=== PATIENT | male | born 1955 | race Caucasian/White ===

== ENCOUNTER → 2021-11-17 | Outpatient (CLI) | payer MEDICARE | LOC: M WUC 10:15 | PROVIDERS: ATTEND Physician Assistant Medical | DX: M79.672 Pain in left foot (principal) ==

== ENCOUNTER 2023-02-01 06:32 | Day surgery (SDC) | payer MEDICARE ==
[~2023-02-01] VITALS: Ht 167.6 cm; Wt 99.7 kg
[~2023-02-01 06:32] MED LIST: NS 1,000 ML IV ONE
[2023-02-01] MEDS ORDERED: LIDOCAINE 2% 100MG/5ML SDV (FOR ANES.) As Ordered ONE (07:25)
[2023-02-01] MEDS ORDERED: propofoL 200 MG/20 ML VIAL As Ordered ONE (07:25)
[2023-02-01 08:07] VITALS: TEMP 98
[2023-02-01 08:44] VITALS: BP 121/77; O2SAT 94
== END 2023-02-01 09:01 | disposition home or self-care (01) ==
LOC: M OPP 06:32
PROVIDERS: ATTEND Internal Medicine Gastroenterology
DX: Z12.11 Encounter for screening for malignant neoplasm of colon (principal); D12.2 Benign neoplasm of ascending colon; D12.3 Benign neoplasm of transverse colon; D12.8 Benign neoplasm of rectum; K64.0 First degree hemorrhoids; K57.30 Diverticulosis of large intestine without perforation or abscess without bleeding

== ENCOUNTER → 2023-05-11 | Outpatient (CLI) | payer MEDICARE ==
[~2023-05-11] MED LIST changes: +ISOVUE-370 76% 100ML VIAL As Ordered ONE; -NS 1,000 ML IV ONE
== END ==
LOC: M RAD 13:50
PROVIDERS: ATTEND Internal Medicine Cardiovascular Disease
DX: I71.21 Aneurysm of the ascending aorta, without rupture (principal)
CPT/HCPCS: 71260; Q9967

== ENCOUNTER → 2023-09-21 | Outpatient (CLI) | payer MEDICARE | LOC: M RAD 11:25 | PROVIDERS: ATTEND Physician Assistant Medical | DX: E04.2 Nontoxic multinodular goiter (principal) ==

== ENCOUNTER → 2023-11-06 | Outpatient (REF) | payer MEDICARE ==
[~2023-11-06] MED LIST changes: +ATOR40TA75 PO; -ISOVUE-370 76% 100ML VIAL As Ordered ONE; +LASI20TA3 PO; +LASI40TA9 PO; +METO1TAB7 PO; +MUCI1TAB18 PO; +POTA-151 PO; +VENTAER INH
[2023-11-06 17:18] LABS: INR 1.08; PROTHROMBIN TIME 13.7 SECONDS (12.5-14.5)
[2023-11-06 17:46] LABS: BLOOD UREA NITROGEN 18 MG/DL (9-23); CALCIUM LEVEL 8.5 MG/DL (8.3-10.6); CARBON DIOXIDE LEVEL 26 MMOL/L (20-31); CHLORIDE LEVEL 104 MMOL/L (98-107); GLOMERULAR FILTRATION RATE > 60.0 (>49); GLUCOSE, FASTING 125 MG/DL (74-106); POTASSIUM SERUM 4.3 MMOL/L (3.5-5.1); SODIUM LEVEL 138 MMOL/L (136-145)
== END ==
LOC: M SHH 16:31
PROVIDERS: ATTEND Physician Assistant
DX: J90 Pleural effusion, not elsewhere classified (principal)

== ENCOUNTER → 2024-08-08 | Outpatient (CLI) | payer MEDICARE | LOC: M WUC 10:12 | PROVIDERS: ATTEND Physician Assistant Medical | DX: R06.2 Wheezing (principal); R05.1 Acute cough ==

== ENCOUNTER 2024-08-12 15:53 | Inpatient (IN) | payer MEDICARE ==
[~2024-08-12] VITALS: Ht 167.6 cm; Wt 104.9 kg
[2024-08-12] MEDS: IPRATROPIUM 0.5MG/ALBUTEROL 2.5MG INH SOL UD 3ML (DUONEB) NEB ONE (16:48)
[2024-08-12 16:49] LABS: BASO # 0.1 10^3/uL (0.0-0.2); BASO % 0.7 % (0.0-1.0); EOS # 0.4 10^3/uL (0.0-0.5); EOS % 6.5 % (0.0-3.0); HEMATOCRIT 41.2 % (42.0-52.0); HEMOGLOBIN 14.1 g/dl (13.5-17.5); LYMPH # 1.9 10^3/uL (1.5-5.0); LYMPH % 27.9 % (24.0-44.0); MEAN CORPUSCULAR HEMOGLOBIN 28.9 pg (27.0-33.0); MEAN CORPUSCULAR HGB CONC 34.2 g/dl (32.0-36.5); MEAN CORPUSCULAR VOLUME 84.4 fl (80.0-96.0); MONO # 0.5 10^3/uL (0.0-0.8); MONO % 6.7 % (2.0-8.0); NEUTROPHILS # 3.9 10^3/uL (1.5-8.5); NEUTROPHILS % 57.5 % (36.0-66.0); PLATELET COUNT, AUTOMATED 280 10^3/uL (150-450); RED BLOOD COUNT 4.88 10^6/uL (4.30-6.10); WHITE BLOOD COUNT 6.8 10^3/uL (4.0-10.0)
[2024-08-12 17:17] LABS: ALBUMIN 3.9 G/DL (3.2-5.2); ALKALINE PHOSPHATASE 85 U/L (40-129); ALT/SGPT 28 U/L (7.0-40); AST/SGOT 29 U/L (<34); BILIRUBIN,DIRECT 0.7 MG/DL (<0.4); BILIRUBIN,TOTAL 1.8 MG/DL (0.3-1.2); BLOOD UREA NITROGEN 16 MG/DL (9-23); CALCIUM LEVEL 9.1 MG/DL (8.3-10.6); CARBON DIOXIDE LEVEL 28 MMOL/L (20-31); CHLORIDE LEVEL 103 MMOL/L (98-107); CK-MB VALUE MASS 4.4 NG/ML (<3.6); CREATININE FOR GFR 0.89 MG/DL (0.70-1.30); GLOMERULAR FILTRATION RATE > 60.0 (>49); GLUCOSE, FASTING 137 MG/DL (74-106); POTASSIUM SERUM 3.6 MMOL/L (3.5-5.1); SODIUM LEVEL 138 MMOL/L (136-145); TOTAL PROTEIN 7.3 G/DL (5.7-8.2)
[2024-08-12 17:29] LABS: CPK CREATINE PHOSPHOKINASE 348 U/L (46-171); MB/CK RELATIVE INDEX 1.26 (< OR =4)
[2024-08-12] MEDS: IPRATROPIUM 0.5MG/ALBUTEROL 2.5MG INH SOL UD 3ML (DUONEB) NEB PRN (18:10)
[2024-08-12 18:32] LABS: CK-MB VALUE MASS 3.7 NG/ML (<3.6); MB/CK RELATIVE INDEX 1.11 (< OR =4)
[2024-08-12] MEDS: methylPREDNISolone 125MG 2ML VIAL IV ONE (19:11)
[2024-08-12] MEDS ORDERED: ISOVUE-370 76% 100ML VIAL As Ordered ONE (19:11)
[2024-08-12] MEDS: ASPIRIN 325 MG TAB PO ONE (19:11)
[2024-08-12] MEDS: ALBUTEROL SULFATE 2.5MG/0.5ML INH NEB SOLN NEB ONE (19:17)
[2024-08-12 19:24] LABS: INR 0.97; PROTHROMBIN TIME 13.2 SECONDS (12.5-14.5)
[2024-08-12 19:36] LABS: ABG BASE EXCESS 0.3 (-2.0-2.0); ABG O2 SATURATION 95.5 % (95.0-99.0); ABG PARTIAL PRESSURE O2 72.1 mmHg (75.0-100.0); ABG STANDARD HCO3 24.7 MMOL/L. (22.0-26.0); ABG pH (ARTERIAL) 7.474 UNITS (7.350-7.450)
[2024-08-12] MEDS: PSEUDOEPHEDRINE 30 MG TAB PO ONE (20:42)
[2024-08-12] MEDS ORDERED: HYDR12.55 PO (21:10)
[2024-08-12] MEDS ORDERED: MUCI60TA7 PO (21:10)
[2024-08-12] MEDS ORDERED: ECOT325T6 PO (21:10)
[2024-08-12] MEDS ORDERED: HOME MED LIST COMPLETE! XX SCH (21:15)
[2024-08-12 21:38] LABS: CK-MB VALUE MASS 2.6 NG/ML (<3.6)
[2024-08-12 21:45] LABS: MB/CK RELATIVE INDEX 0.89 (< OR =4)
[2024-08-12 21:54] LABS: MAGNESIUM LEVEL 2.1 MG/DL (1.8-2.4); PHOSPHORUS LEVEL 2.9 MG/DL (2.4-5.1)
[2024-08-12] MEDS: POTASSIUM CHLORIDE 10MEQ SR TABLET PO ONE (23:52)
[2024-08-12] MEDS: guaiFENesin ER TABLET 600 MG TAB PO SCH (23:52)
[2024-08-12] MEDS: METOPROLOL SUCC (TopROL XL) 50MG **XL** TAB PO SCH (23:52)
[2024-08-12] MEDS: FUROSEMIDE 100MG/10ML VIAL IV ONE (23:54)
[2024-08-13] MEDS: HEPARIN SOD (PORCINE) 5000UNITS/ML 1ML VIAL/SYRINGE SQ SCH (06:25)
[2024-08-13] MEDS: FUROSEMIDE 40MG/4ML VIAL IV SCH (08:21)
[2024-08-13] MEDS: ATORVASTATIN 20 MG TAB PO SCH (08:24)
[2024-08-13] MEDS: ASPIRIN ENTERIC 325MG TAB PO SCH (08:24)
[2024-08-13] MEDS: IPRATROPIUM 0.5MG/ALBUTEROL 2.5MG INH SOL UD 3ML (DUONEB) NEB PRN (14:01)
[2024-08-13] MEDS: BENZONATATE 100MG CAPSULE PO SCH (16:20)
[2024-08-13 17:28] VITALS: BP 142/91; TEMP 97.8; O2SAT 95
[2024-08-13] MEDS: PANTOPRAZOLE 40MG TAB (PROTONIX) PO SCH (17:54)
[2024-08-13 18:40] VITALS: BP 140/78; TEMP 97.1; O2SAT 94
[2024-08-13] MEDS: methylPREDNISolone 40MG 1ML VIAL IV SCH (19:02)
[2024-08-13] MEDS: MONTELUKAST 10 MG TAB PO SCH (19:06)
[2024-08-13] MEDS: LORATADINE 10 MG TAB PO SCH (19:06)
[2024-08-13 19:42] VITALS: BP 178/84; TEMP 96.8; O2SAT 92
[2024-08-13 20:21] VITALS: BP 142/76
[2024-08-13] MEDS: IPRATROPIUM 0.5MG/ALBUTEROL 2.5MG INH SOL UD 3ML (DUONEB) NEB SCH (20:46)
[2024-08-13] MEDS: BUDESONIDE 0.5 MG/2 ML INHALATION SUSPENSION NEB SCH (20:46)
[2024-08-13] MEDS ORDERED: BENZONATATE 100MG CAPSULE PO SCH (21:00)
[2024-08-13] MEDS: FLUTICASONE PROP 0.05% NASAL SPRAY 16 GM (FLONASE) NARES SCH (21:44)
[2024-08-13] MEDS: guaiFENesin/CODEINE SYRUP 5 ML UDC PO PRN (22:35)
[2024-08-13 23:00] VITALS: BP 145/75; TEMP 99.2; O2SAT 94
[2024-08-14] MEDS ORDERED: IPRATROPIUM 0.5MG/ALBUTEROL 2.5MG INH SOL UD 3ML (DUONEB) NEB PRN (02:20)
[2024-08-14] MEDS: IPRATROPIUM 0.5MG/ALBUTEROL 2.5MG INH SOL UD 3ML (DUONEB) NEB SCH (02:20)
[2024-08-14 03:00] VITALS: BP 141/74; TEMP 96.7; O2SAT 92
[2024-08-14 08:00] VITALS: BP 127/68; TEMP 97.2; O2SAT 94
[2024-08-14 08:35] LABS: HEMATOCRIT 41.5 % (42.0-52.0); HEMOGLOBIN 14.3 g/dl (13.5-17.5); MEAN CORPUSCULAR HEMOGLOBIN 29.1 pg (27.0-33.0); MEAN CORPUSCULAR HGB CONC 34.5 g/dl (32.0-36.5); MEAN CORPUSCULAR VOLUME 84.3 fl (80.0-96.0); PLATELET COUNT, AUTOMATED 346 10^3/uL (150-450); RED BLOOD COUNT 4.92 10^6/uL (4.30-6.10); WHITE BLOOD COUNT 13.4 10^3/uL (4.0-10.0)
[2024-08-14 09:06] LABS: ALBUMIN 4.1 G/DL (3.2-5.2); ALKALINE PHOSPHATASE 87 U/L (40-129); ALT/SGPT 37 U/L (7.0-40); AST/SGOT 47 U/L (<34); BILIRUBIN,TOTAL 1.7 MG/DL (0.3-1.2); BLOOD UREA NITROGEN 24 MG/DL (9-23); CALCIUM LEVEL 9.6 MG/DL (8.3-10.6); CARBON DIOXIDE LEVEL 29 MMOL/L (20-31); CHLORIDE LEVEL 96 MMOL/L (98-107); CREATININE FOR GFR 0.92 MG/DL (0.70-1.30); GLOMERULAR FILTRATION RATE > 60.0 (>49); GLUCOSE, FASTING 186 MG/DL (74-106); POTASSIUM SERUM 3.6 MMOL/L (3.5-5.1); SODIUM LEVEL 135 MMOL/L (136-145); TOTAL PROTEIN 7.8 G/DL (5.7-8.2)
[2024-08-14] MEDS ORDERED: SYMB16INH INH (10:47)
[2024-08-14] MEDS ORDERED: CLAR10CA3 PO (10:47)
[2024-08-14] MEDS ORDERED: MONT4TAB2 PO (10:47)
[2024-08-14] MEDS ORDERED: FLON1SPR NARES (10:47)
[2024-08-14] MEDS ORDERED: ALBU2.5V10 INH (10:47)
[2024-08-14] MEDS ORDERED: PRED20TA PO ×2 (10:47→11:23)
[2024-08-14] MEDS ORDERED: LORA-622 PO (11:23)
[2024-08-14] MEDS ORDERED: MONT-5 PO (11:23)
[2024-08-14 16:00] VITALS: BP 118/63; TEMP 97.3; O2SAT 93
[2024-08-14 20:06] VITALS: BP 137/64; TEMP 97.4; O2SAT 94
[2024-08-14] MEDS: AUGMENTIN 875 MG TAB PO SCH (20:54)
[2024-08-14 22:30] VITALS: BP 117/73; TEMP 97.7; O2SAT 92
[2024-08-15] VITALS (9 sets, daily range): BP systolic 119–141; BP diastolic 75–79; TEMP 97.9–98.1; O2SAT 88–97
[2024-08-15 05:51] LABS: HEMATOCRIT 38.6 % (42.0-52.0); HEMOGLOBIN 13.5 g/dl (13.5-17.5); MEAN CORPUSCULAR HEMOGLOBIN 29.4 pg (27.0-33.0); MEAN CORPUSCULAR VOLUME 84.1 fl (80.0-96.0); PLATELET COUNT, AUTOMATED 304 10^3/uL (150-450); RED BLOOD COUNT 4.59 10^6/uL (4.30-6.10); WHITE BLOOD COUNT 12.1 10^3/uL (4.0-10.0)
[2024-08-15] MEDS ORDERED: MAG SULF 1GM/100ML (MAG RUN) 1 GM in IV 1 EA IV SCH (07:15)
[2024-08-15 08:15] LABS: BLOOD UREA NITROGEN 23 MG/DL (9-23); CALCIUM LEVEL 9.2 MG/DL (8.3-10.6); CARBON DIOXIDE LEVEL 28 MMOL/L (20-31); CHLORIDE LEVEL 97 MMOL/L (98-107); CREATININE FOR GFR 0.89 MG/DL (0.70-1.30); GLOMERULAR FILTRATION RATE > 60.0 (>49); GLUCOSE, FASTING 203 MG/DL (74-106); POTASSIUM SERUM 3.7 MMOL/L (3.5-5.1); SODIUM LEVEL 137 MMOL/L (136-145)
[2024-08-16 03:30] VITALS: BP 129/62; TEMP 97.7; O2SAT 93
[2024-08-16 05:05] LABS: BASO % 0.1 % (0.0-1.0); HEMATOCRIT 40.4 % (42.0-52.0); HEMOGLOBIN 13.9 g/dl (13.5-17.5); LYMPH # 1.5 10^3/uL (1.5-5.0); LYMPH % 11.8 % (24.0-44.0); MEAN CORPUSCULAR HEMOGLOBIN 29.1 pg (27.0-33.0); MEAN CORPUSCULAR HGB CONC 34.4 g/dl (32.0-36.5); MEAN CORPUSCULAR VOLUME 84.7 fl (80.0-96.0); MONO # 0.5 10^3/uL (0.0-0.8); MONO % 4.3 % (2.0-8.0); NEUTROPHILS # 10.4 10^3/uL (1.5-8.5); NEUTROPHILS % 82.8 % (36.0-66.0); PLATELET COUNT, AUTOMATED 288 10^3/uL (150-450); RED BLOOD COUNT 4.77 10^6/uL (4.30-6.10); WHITE BLOOD COUNT 12.5 10^3/uL (4.0-10.0)
[2024-08-16 08:00] VITALS: BP 130/80; TEMP 98.1; O2SAT 95
[2024-08-16 08:38] VITALS: BP 141/76
[2024-08-16] MEDS ORDERED: IPRA0.00 NEB (10:37)
[2024-08-16] MEDS ORDERED: AMOX875T2 PO (11:44)
[2024-08-16 12:00] VITALS: BP 140/76; TEMP 97.5; O2SAT 90
[2024-08-16] MEDS ORDERED: ADV500INH INH (12:11)
== END 2024-08-16 13:50 | disposition home health service (06) | DRG 202 ==
LOC: M ED 15:53 → M ED INP 22:33 → M PCU 08-13 18:29 → M MSPAV 08-14 22:08
PROVIDERS: ADMIT Student in an Organized Health Care Education/Training Program; ATTEND Student in an Organized Health Care Education/Training Program
PROC: B246ZZZ Ultrasonography of Right and Left Heart (ICD-10-PCS; principal; 2024-08-14)
DX: J45.909 Unspecified asthma, uncomplicated (principal); I45.3 Trifascicular block; I24.89 Other forms of acute ischemic heart disease; J21.9 Acute bronchiolitis, unspecified; R73.03 Prediabetes; I65.21 Occlusion and stenosis of right carotid artery; I25.10 Atherosclerotic heart disease of native coronary artery without angina pectoris; K80.20 Calculus of gallbladder without cholecystitis without obstruction; I71.21 Aneurysm of the ascending aorta, without rupture; R06.02 Shortness of breath; I50.9 Heart failure, unspecified; E78.5 Hyperlipidemia, unspecified; I11.0 Hypertensive heart disease with heart failure; K21.9 Gastro-esophageal reflux disease without esophagitis; R05.3 Chronic cough; Z79.82 Long term (current) use of aspirin; Z79.899 Other long term (current) drug therapy; Z90.49 Acquired absence of other specified parts of digestive tract; Z88.2 Allergy status to sulfonamides; Z95.1 Presence of aortocoronary bypass graft

== ENCOUNTER → 2024-09-20 | Outpatient (REF) | payer MEDICARE ==
[~2024-09-20] MED LIST changes: +ADVA1AER10 INH; +ALBU2.5V10 INH; +AMOX875T2 PO; +CLAR10CA3 PO; +ECOT325T6 PO; +FLON1SPR NARES; +HYDR12.55 PO; +IPRA0.00 NEB; +LORA-622 PO; +MONT-5 PO; +MONT4TAB2 PO; +MUCI60TA7 PO; +PRED20TA PO; +SYMB16INH INH
== END ==
LOC: M SHH 16:10
PROVIDERS: ATTEND Physician Assistant Medical
DX: R05.9 Cough, unspecified (principal)

== ENCOUNTER → 2025-04-07 | Outpatient (CLI) | payer MEDICARE ==
[~2025-04-07] MED LIST changes: +LORA-1164 PO; -LORA-622 PO
[2025-04-07 16:26] LABS: C REACTIVE PROTEIN QUANTITATIV < 0.50 MG/DL (<1.0)
[2025-04-07 16:28] LABS: TOTAL 25(OH) VITAMIN D 53.8 NG/ML (20.0-100.0)
[2025-04-07 17:52] LABS: IMMUNOGLOBULIN E 223.2 IU/ML (0-378)
[2025-04-08 15:46] LABS: BERMUDA GRASS IGE 0.23 kU/L (<0.10); BIRCH IGE < 0.10 kU/L (<0.10); COMMON RAGWEED SHORT IGE < 0.10 kU/L (<0.10); D001 IGE D PTERONYSSINUS < 0.10 kU/L (<0.10); D002-IGE D FARINAE < 0.10 kU/L (<0.10); E001-IGE CAT DANDER < 0.10 kU/L (<0.10); E005-IGE DOG DANDER < 0.10 kU/L (<0.10); ELM IGE 0.12 kU/L (<0.10); I006 IGE COCKROACH 0.17 kU/L (<0.10); IMMUNOGLOBULIN E FOR ALLERGENS 393 kU/L (<OR=114); M006 IGE ALTERNIA ALTERNATA < 0.10 kU/L (<0.10); M1-PENICILLIUM NOTATUM < 0.10 kU/L (<0.10); MOUSE URINE IGE < 0.10 kU/L (<0.10); MUGWORT IGE < 0.10 kU/L (<0.10); OAK IGE < 0.10 kU/L (<0.10); ROUGH PIGWEED IGE < 0.10 kU/L (<0.10); SHEEP SORREL IGE < 0.10 kU/L (<0.10); T001-IGE MAPLE BOX ELDER 0.13 kU/L (<0.10); T006-IGE MOUNTAIN CEDAR < 0.10 kU/L (<0.10); T014 COTTONWOOD IGE 0.10 kU/L (<0.10); TIMOTHY GRASS IGE 0.17 kU/L (<0.10); WALNUT TREE IGE < 0.10 kU/L (<0.10); WHITE ASH IGE 0.10 kU/L (<0.10); WHITE MULBERRY IGE < 0.10 kU/L (<0.10)
== END ==
LOC: M LAB 14:58
PROVIDERS: ATTEND Internal Medicine Critical Care Medicine
DX: J45.40 Moderate persistent asthma, uncomplicated (principal); R97.20 Elevated prostate specific antigen [PSA]; Z79.899 Other long term (current) drug therapy

== ENCOUNTER → 2025-04-07 | Outpatient (CLI) | payer MEDICARE | LOC: M LAB 14:59 | PROVIDERS: ATTEND Nurse Practitioner Family | DX: R97.20 Elevated prostate specific antigen [PSA] (principal) ==

== ENCOUNTER → 2025-04-22 | Outpatient (REF) | payer MEDICARE | LOC: M LAB REF 10:07 | PROVIDERS: ATTEND Internal Medicine Critical Care Medicine | DX: R05.3 Chronic cough (principal) ==

== ENCOUNTER → 2025-06-25 | Outpatient (CLI) | payer MEDICARE ==
[2025-06-27 10:27] LABS: PSA % FREE NOT CALCULATED % (calc) (>25); PSA FREE 1.3 ng/mL; PSA TOTAL 10.2 ng/mL (< OR = 4.0)
== END ==
LOC: M LAB 11:42
PROVIDERS: ATTEND Nurse Practitioner Family
DX: R97.20 Elevated prostate specific antigen [PSA] (principal)

== ENCOUNTER → 2025-07-29 | Outpatient (REF) | payer MEDICARE | LOC: M SMT 13:09 | PROVIDERS: ATTEND Urology | DX: R97.20 Elevated prostate specific antigen [PSA] (principal) ==

== ENCOUNTER → 2025-08-05 | Outpatient (CLI) | payer MEDICARE | LOC: M PLAIMG 08:06 | PROVIDERS: ATTEND Internal Medicine Critical Care Medicine | DX: R05.3 Chronic cough (principal) ==